=== PATIENT | male | born 1965 | race Caucasian/White ===

== ENCOUNTER 2021-06-01 13:08 | Emergency (ER) | payer MEDICAID ==
[~2021-06-01] VITALS: Ht 172.7 cm; Wt 78.0 kg
[2021-06-01] MEDS ORDERED: IBUPROFEN 600MG TABLET PO ONE (13:30)
[2021-06-01 14:07] VITALS: BP 128/75
== END 2021-06-01 14:08 | disposition home or self-care (01) ==
LOC: ER 13:08
DX: R21 Rash and other nonspecific skin eruption (principal); J44.9 Chronic obstructive pulmonary disease, unspecified; Z88.0 Allergy status to penicillin
CPT/HCPCS: 99281

== ENCOUNTER 2021-07-02 11:36 | Emergency (ER) | payer MEDICAID ==
[~2021-07-02] VITALS: Ht 172.7 cm; Wt 79.0 kg
[2021-07-02 11:46] VITALS: BP 139/77
[2021-07-02] MEDS ORDERED: ALBU6.7H9 INH (12:30)
== END 2021-07-02 12:39 | disposition home or self-care (01) ==
LOC: ER 11:36
DX: Z76.0 Encounter for issue of repeat prescription (principal); J44.9 Chronic obstructive pulmonary disease, unspecified; J45.909 Unspecified asthma, uncomplicated; Z98.1 Arthrodesis status; Z88.0 Allergy status to penicillin
CPT/HCPCS: 99281

== ENCOUNTER 2021-07-06 08:52 | Emergency (ER) | payer MEDICAID ==
[~2021-07-06] VITALS: Ht 172.7 cm; Wt 79.0 kg
[~2021-07-06 08:52] MED LIST: ALBU6.7H9 INH
[2021-07-06 09:35] VITALS: BP 133/76
[2021-07-06] MEDS ORDERED: GUAIFENESIN 600MG ER TABLET PO ONE (10:15)
[2021-07-06] MEDS ORDERED: AZITHROMYCIN 500 MG TABLET PO ONE (10:15)
[2021-07-06] MEDS ORDERED: ACETAMINOPHEN 325MG TABLET PO ONE (10:15)
[2021-07-06] MEDS ORDERED: IBUP-2029 MT (10:17)
[2021-07-06] MEDS ORDERED: AZIT500T8 MT (10:17)
[2021-07-06] MEDS ORDERED: GUAI600T26 MT (10:18)
== END 2021-07-06 11:10 | disposition home or self-care (01) ==
LOC: ER 08:52
DX: H66.92 Otitis media, unspecified, left ear (principal); H61.21 Impacted cerumen, right ear; J44.9 Chronic obstructive pulmonary disease, unspecified; F17.200 Nicotine dependence, unspecified, uncomplicated; Z98.890 Other specified postprocedural states; Z88.0 Allergy status to penicillin; Z79.899 Other long term (current) drug therapy
CPT/HCPCS: 99284

== ENCOUNTER 2021-08-16 06:23 | Emergency (ER) | payer MEDICAID ==
[~2021-08-16] VITALS: Ht 172.7 cm; Wt 78.0 kg
[~2021-08-16 06:23] MED LIST changes: +AZIT500T8 MT; +GUAI600T26 MT; +IBUP-2029 MT
[2021-08-16 06:44] VITALS: BP 108/76
[2021-08-16] MEDS ORDERED: BACL-141 MT (07:15)
[2021-08-16] MEDS ORDERED: ACET-2708 MT (07:15)
[2021-08-16] MEDS ORDERED: GABA-529 MT (07:15)
[2021-08-16] MEDS ORDERED: IBUP-2029 MT (07:15)
== END 2021-08-16 07:49 | disposition home or self-care (01) ==
LOC: ER 06:23
DX: M79.18 Myalgia, other site (principal); R20.2 Paresthesia of skin; J44.9 Chronic obstructive pulmonary disease, unspecified; J45.909 Unspecified asthma, uncomplicated; Z88.0 Allergy status to penicillin
CPT/HCPCS: 99283

== ENCOUNTER 2021-09-02 05:57 | Emergency (ER) | payer MEDICAID ==
[~2021-09-02] VITALS: Ht 172.7 cm; Wt 77.0 kg
[~2021-09-02 05:57] MED LIST changes: +ACET-2708 MT; +BACL-141 MT; +GABA-529 MT
[2021-09-02 06:04] VITALS: BP 129/54
[2021-09-02] MEDS ORDERED: GABAPENTIN 300MG CAPSULE PO ONE (07:00)
[2021-09-02] MEDS ORDERED: IBUPROFEN 800MG TABLET PO ONE (07:00)
[2021-09-02] MEDS ORDERED: GABA-529 MT (07:24)
[2021-09-02] MEDS ORDERED: IBUP-2030 MT (07:24)
== END 2021-09-02 08:02 | disposition home or self-care (01) ==
LOC: ER 06:23
DX: M79.652 Pain in left thigh (principal); J45.909 Unspecified asthma, uncomplicated; Z88.0 Allergy status to penicillin; Z79.899 Other long term (current) drug therapy
CPT/HCPCS: 99283

== ENCOUNTER 2021-09-17 07:50 | Emergency (ER) | payer MEDICAID ==
[~2021-09-17] VITALS: Ht 172.7 cm; Wt 77.0 kg
[~2021-09-17 07:50] MED LIST changes: +IBUP-2030 MT
[2021-09-17] MEDS ORDERED: IBUPROFEN 800MG TABLET PO ONE (08:30)
[2021-09-17] MEDS ORDERED: IBUP-2029 MT (08:37)
[2021-09-17 08:43] VITALS: BP 110/73
== END 2021-09-17 09:34 | disposition home or self-care (01) ==
LOC: ER 07:50
DX: S86.012A Strain of left Achilles tendon, initial encounter (principal); J45.909 Unspecified asthma, uncomplicated; X58.XXXA Exposure to other specified factors, initial encounter; Y93.9 Activity, unspecified; Y92.9 Unspecified place or not applicable; Z88.0 Allergy status to penicillin
CPT/HCPCS: 29515; 99283

== ENCOUNTER 2021-12-20 07:03 | Emergency (ER) | payer MEDICAID ==
[~2021-12-20] VITALS: Ht 172.7 cm; Wt 75.0 kg
[2021-12-20 08:45] VITALS: BP 127/59
== END 2021-12-20 10:30 | disposition left against medical advice (07) ==
LOC: ER 07:03
DX: Z53.21 Procedure and treatment not carried out due to patient leaving prior to being seen by health care provider (principal); J45.909 Unspecified asthma, uncomplicated
CPT/HCPCS: Z7610 ×4

== ENCOUNTER 2021-12-30 10:33 | Emergency (ER) | payer MEDICAID ==
[~2021-12-30] VITALS: Ht 172.7 cm; Wt 78.0 kg
[2021-12-30 10:50] VITALS: BP 125/84
== END 2021-12-30 20:04 | disposition left against medical advice (07) ==
LOC: ER 10:33
DX: H61.21 Impacted cerumen, right ear (principal)
CPT/HCPCS: 99281

== ENCOUNTER 2022-01-17 09:38 | Emergency (ER) | payer MEDICAID ==
[~2022-01-17] VITALS: Ht 172.7 cm; Wt 77.0 kg
[2022-01-17] MEDS ORDERED: TERB250T51 MT (11:45)
[2022-01-17 11:55] VITALS: BP 128/86
== END 2022-01-17 11:56 | disposition home or self-care (01) ==
LOC: ER 09:38
DX: B35.1 Tinea unguium (principal); J45.909 Unspecified asthma, uncomplicated; Z88.0 Allergy status to penicillin
CPT/HCPCS: 36415; 80076; 99283

== ENCOUNTER 2022-03-04 18:42 | Emergency (ER) | payer MEDICAID, OTHER ==
[~2022-03-04] VITALS: Ht 172.7 cm; Wt 80.0 kg
[~2022-03-04 18:42] MED LIST changes: +TERB250T51 MT
[2022-03-04 18:50] VITALS: BP 130/72
== END 2022-03-04 22:30 | disposition left against medical advice (07) ==
LOC: ER 18:42
DX: Z53.21 Procedure and treatment not carried out due to patient leaving prior to being seen by health care provider (principal)
CPT/HCPCS: 73130; 99283

== ENCOUNTER 2022-03-14 10:51 | Emergency (ER) | payer MEDICAID ==
[~2022-03-14] VITALS: Ht 172.7 cm; Wt 78.0 kg
[2022-03-14] MEDS ORDERED: IBUP-2029 MT (12:23)
[2022-03-14] MEDS ORDERED: MED4 MT (12:23)
[2022-03-14] MEDS ORDERED: HYDR-4001 MT (12:23)
[2022-03-14] MEDS ORDERED: HYDROCODONE/ACETAMINOPHEN 5/325MG TABLET PO ONE (12:30)
[2022-03-14 12:39] VITALS: BP 141/85
== END 2022-03-14 12:45 | disposition home or self-care (01) ==
LOC: ER 10:51
DX: M54.2 Cervicalgia (principal); M54.12 Radiculopathy, cervical region; I10 Essential (primary) hypertension; J44.9 Chronic obstructive pulmonary disease, unspecified; J45.909 Unspecified asthma, uncomplicated; M19.09 Primary osteoarthritis, other specified site; Z88.0 Allergy status to penicillin
CPT/HCPCS: 99283

== ENCOUNTER 2022-04-02 23:32 | Emergency (ER) | payer MEDICAID ==
[~2022-04-02] VITALS: Ht 172.7 cm; Wt 78.5 kg
[~2022-04-02 23:32] MED LIST changes: +HYDR-4001 MT; +MED4 MT; -TERB250T51 MT; +TERB250T88 MT
[2022-04-02 23:46] VITALS: BP 117/76
== END 2022-04-03 03:38 | disposition left against medical advice (07) ==
LOC: ER 23:32
DX: Z53.21 Procedure and treatment not carried out due to patient leaving prior to being seen by health care provider (principal)
CPT/HCPCS: 99281

== ENCOUNTER 2022-05-03 10:17 | Emergency (ER) | payer MEDICAID ==
[~2022-05-03] VITALS: Ht 172.7 cm; Wt 79.0 kg
[2022-05-03] MEDS ORDERED: HYDROCODONE/ACETAMINOPHEN 5/325MG TABLET PO STA (11:11)
[2022-05-03] MEDS ORDERED: HYDR-4001 MT (11:31)
[2022-05-03] MEDS ORDERED: GABA-532 PO (11:31)
[2022-05-03] MEDS ORDERED: BACL-141 MT (11:31)
[2022-05-03 11:44] VITALS: BP 142/68
== END 2022-05-03 11:45 | disposition home or self-care (01) ==
LOC: ER 10:17
DX: M54.12 Radiculopathy, cervical region (principal); M54.2 Cervicalgia; Z76.0 Encounter for issue of repeat prescription; J44.9 Chronic obstructive pulmonary disease, unspecified; Z79.899 Other long term (current) drug therapy; Z88.0 Allergy status to penicillin
CPT/HCPCS: 99283